=== PATIENT | female | born 1975 | race American Indian/Alaskan Native ===

== ENCOUNTER 2019-02-10 06:36 | Emergency (ER) | payer OTHER ==
[2019-02-10 07:41] LABS: Basophils % (Auto) 0.6 % (0.0-1.8); Eosinophils # (Auto) 0.1 K/mm3 (0.0-0.4); Eosinophils % (Auto) 2.5 % (0.0-4.3); Hematocrit 47.9 % (30.3-42.9); Hemoglobin 15.7 gm/dl (10.1-14.3); Lymphocytes # (Auto) 1.1 K/mm3 (1.2-5.4); Lymphocytes % (Auto) 18.4 % (13.4-35.0); Mean Corpuscular HGB Conc 33 % (30-34); Mean Corpuscular Volume 87 fl (79-97); Monocytes # (Auto) 0.4 K/mm3 (0.0-0.8); Monocytes % (Auto) 6.3 % (0.0-7.3); Platelet Count 270 K/mm3 (140-440); Red Blood Count 5.53 M/mm3 (3.65-5.03); Red Cell Distribution Width 13.2 % (13.2-15.2)
[2019-02-10 07:47] LABS: Alanine Aminotransferase 28 units/L (7-56); Albumin 4.4 g/dL (3.9-5); BUN/Creatinine Ratio 18; Blood Urea Nitrogen 9 mg/dL (7-17); Calcium 9.6 mg/dL (8.4-10.2); Hemolysis Index 4
--- NOTE | 2019-02-10 07:57 | Emergency Department Report ---
ED Palpitations HPI - General Chief Complaint: Arrhythmia/Palpitations Stated Complaint: PALPATATIONS, LEG/ANKLE/FOOT SWELLING Time Seen by Provider: 02/10/19 07:41 Source: patient Mode of arrival: Ambulatory Limitations: No Limitations - History of Present Illness Initial Comments: She is a 43-year-old female that presents emergency room with complaints of palpitations. Patient states her palpitations started approximately 2 months ago are intermittent. Patient states over the last 24 hours and becoming more frequent. She denies shortness of breath. Patient denies chest pain. Patient chills. Patient denies diaphoresis. Patient denies anxiety. Patient states she stopped taking her medications for her congestive heart failure hypertension and high cholesterol 3 months ago. Patient states she's also been having right leg pain for 4 weeks. Patient states her leg pain is is worse with movement and better with rest. Patient states it hurts mostly when she is working. Patient denies pain in her legs at this time. MD Complaint: palpitations -: Sudden Context: occured during exertion Associated Symptoms: denies: chest pain, shortness of breath, syncope, near- syncope, nausea/vomiting, anxiety, diaphoresis, cough, parasthesias, feeling of impending doom, muscle cramps - Related Data Previous Rx's Medication Instructions Recorded Last Taken Type Carvedilol [Coreg] 6.25 mg PO BID 15 Days #30 tablet 02/10/19 Unknown Rx Allergies Allergy/AdvReac Type Severity Reaction Status Date / Time No Known Allergies Allergy Unverified 02/10/19 06:47 ED Review of Systems ROS: Stated complaint: PALPATATIONS, LEG/ANKLE/FOOT SWELLING Other details as noted in HPI Constitutional: denies: chills, fever Eyes: denies: eye pain, eye discharge, vision change ENT: denies: ear pain, throat pain Respiratory: denies: cough, shortness of breath, wheezing Cardiovascular: denies: chest pain, palpitations Endocrine: no symptoms reported Gastrointestinal: denies: abdominal pain, nausea, diarrhea Genitourinary: denies: urgency, dysuria, discharge Musculoskeletal: denies: back pain, joint swelling, arthralgia Skin: denies: rash, lesions Neurological: denies: headache, weakness, paresthesias Psychiatric: denies: anxiety, depression Hematological/Lymphatic: denies: easy bleeding, easy bruising ED Past Medical Hx - Past Medical History Previous Medical History?: Yes Hx Hypertension: Yes Hx Congestive Heart Failure: Yes Additional medical history: hyper aldosterone, high cholesterol - Surgical History Past Surgical History?: Yes Additional Surgical History: hysterectomy - Family History Family history: no significant - Social History Smoking Status: Never Smoker Substance Use Type: None - Medications Home Medications: Home Medications Medication Instructions Recorded Confirmed Last Taken Type Carvedilol [Coreg] 6.25 mg PO BID 15 Days #30 tablet 02/10/19 Unknown Rx ED Physical Exam - General Limitations: No Limitations General appearance: alert, in no apparent distress - Head Head exam: Present: atraumatic, normocephalic - Eye Eye exam: Present: normal appearance - ENT ENT exam: Present: mucous membranes moist - Neck Neck exam: Present: normal inspection - Respiratory Respiratory exam: Present: normal lung sounds bilaterally. Absent: respiratory distress - Cardiovascular Cardiovascular Exam: Present: regular rate, normal rhythm. Absent: systolic murmur, diastolic murmur, rubs, gallop - GI/Abdominal GI/Abdominal exam: Present: soft, normal bowel sounds. Absent: distended, tenderness, guarding - Rectal Rectal exam: Present: deferred - Extremities Exam Extremities exam: Present: normal inspection, full ROM, normal capillary refill. Absent: tenderness, pedal edema, joint swelling, calf tenderness - Back Exam Back exam: Present: normal inspection - Neurological Exam Neurological exam: Present: alert, oriented X3 - Psychiatric Psychiatric exam: Present: normal affect, normal mood - Skin Skin exam: Present: warm, dry, intact, normal color. Absent: rash ED Course Vital Signs 02/10/19 02/10/19 02/10/19 06:42 06:45 07:46 Temperature 97.8 F 97.8 F Pulse Rate 92 H 89 Respiratory 16 16 Rate Blood Pressure 188/116 Blood Pressure 188/116 [Right] O2 Sat by Pulse 100 Oximetry 02/10/19 02/10/19 02/10/19 07:55 08:00 09:00 Temperature 97.8 F Pulse Rate 90 80 85 Respiratory 19 23 27 H Rate Blood Pressure 175/98 145/103 Blood Pressure 184/119 [Right] O2 Sat by Pulse 98 97 98 Oximetry 02/10/19 10:00 Temperature Pulse Rate 85 Respiratory 18 Rate Blood Pressure 158/99 Blood Pressure [Right] O2 Sat by Pulse 97 Oximetry - Reevaluation(s) Reevaluation #1: I discussed all results with patient. Patient is stable for discharge. Patient will be discharged home. Patient agrees with plan of care. Patient given discharge instructions. Patient voiced understanding discharge instructions. 02/10/19 09:24 ED Medical Decision Making - Lab Data Result diagrams: 02/10/19 07:03 02/10/19 07:03 - EKG Data -: EKG Interpreted by Me EKG shows normal: sinus rhythm, axis, intervals, QRS complexes Rate: normal - EKG Data When compared to previous EKG there are: no significant change - Medical Decision Making Patient is a 43-year-old female that passed emergency room with palpitations. Patient found to be noncompliant. Patient will be given a refill of her Coreg. Patient's lites essentially unremarkable. Patient stable for discharge. Patient discharged home. Patient EKG unchanged from previous. - Differential Diagnosis palpitations. Noncompliance. Critical care attestation.: If time is entered above; I have spent that time in minutes in the direct care of this critically ill patient, excluding procedure time. ED Disposition Clinical Impression: Palpitations, Noncompliance Chronic leg pain Qualifiers: Laterality: right Qualified Code(s): M79.604 - Pain in right leg Hypertension Qualifiers: Hypertension type: essential hypertension Qualified Code(s): I10 - Essential (primary) hypertension Disposition: TO HOME OR SELFCARE Is pt being admited?: No Does the pt Need Aspirin: No Condition: Stable Instructions: DASH Eating Plan (ED), Low Sodium Diet (ED), Hypertension (ED) Additional Instructions: Patient to follow up with primary care in 2-3 days. Patient to return to ER if condition worsens. Patient to take meds as directed. Patient increase water. Patient to monitor blood pressure. Patient to rest. Patient to avoid strenuous activity until cleared by primary care.. Prescriptions: Carvedilol [Coreg] 6.25 mg PO BID 15 Days #30 tablet Referrals: DEVONTE JORDAN MD [Primary Care Provider] - 2-3 Days EMMA THOMSON MD [Staff Physician] - 2-3 Days Time of Disposition: 09:25
[2019-02-10 10:04] VITALS: BP 158/99
== END 2019-02-10 10:10 | disposition home or self-care (01) ==
LOC: ED 06:36
DX: I10 Essential (primary) hypertension (principal); G89.29 Other chronic pain; M79.604 Pain in right leg; R00.2 Palpitations; I11.0 Hypertensive heart disease with heart failure; I50.9 Heart failure, unspecified; E78.00 Pure hypercholesterolemia, unspecified; Z98.890 Other specified postprocedural states; Z90.710 Acquired absence of both cervix and uterus; Z79.899 Other long term (current) drug therapy
CPT/HCPCS: 36415; 80053; 83880; 84484; 85025; 93005; 93010; 99283